=== PATIENT | female | born 1960 ===

== ENCOUNTER 2017-07-19 07:22 | Emergency (ER) | payer BC ==
[2017-07-19 07:44] VITALS: BP 146/57
[2017-07-19] MEDS ORDERED: Albuterol/Ipratropium NEB.SOL* Albuterol 2.5 MG/Ipratropium 0.5 MG 3 ML INH ONE (08:07)
--- NOTE | 2017-07-19 08:08 | UC ---
General HPI - HPI Summary HPI Summary: Sore throat x 2 and 1/2 days, "really bad,". Also cough. Sx started , today is . Improved but last night + bad cough, wheeze. Feels sick. - History of Current Complaint Chief Complaint: UCRespiratory Stated Complaint: CONGESTION Time Seen by Provider: 07/19/17 08:00 Hx Obtained From: Patient Hx Last Menstrual Period: 2yrs Pain Intensity: 0 - Allergy/Home Medications Allergies/Adverse Reactions: Allergies Allergy/AdvReac Type Severity Reaction Status Date / Time azithromycin [From Zithromax] Allergy Intermediate Rash Verified 07/19/17 07:45 erythromycin base AdvReac Intermediate GI Upset Verified 07/19/17 07:45 Home Medications: Home Medications Insulin Glargine/Lixisenatide [Soliqua 100 Unit-33 Mcg/ml Pen] 07/19/17 [ History] metFORMIN* [Glucophage 1000 MG TAB *] 1,000 mg PO BID 07/19/17 [History Confirmed 07/19/17] PMH/Surg Hx/FS Hx/Imm Hx Previously Healthy: Yes - has dm - Surgical History Surgical History: Yes Surgery Procedure, Year, and Place: 03/21/12: fibroid tumor from uterus, polyps , d and c - Family History Known Family History: Positive: Diabetes - Social History Alcohol Use: Rare Substance Use Type: None Smoking Status (MU): Never Smoked Tobacco Review of Systems Constitutional: Fever Skin: Negative Eyes: Negative ENT: Sore Throat, Nasal Discharge Respiratory: Cough Cardiovascular: Negative Gastrointestinal: Negative Genitourinary: Negative Motor: Negative Neurovascular: Negative Musculoskeletal: Negative Neurological: Negative Psychological: Negative Is Patient Immunocompromised?: No All Other Systems Reviewed And Are Negative: Yes Physical Exam Triage Information Reviewed: Yes Appearance: Well-Nourished - sitting up. Conversing in full sentances. Looks tired, nontoxic. NAD. Vital Signs: Initial Vital Signs Temp 99.3 F 07/19/17 07:40 Pulse 80 07/19/17 07:40 Resp 18 07/19/17 07:40 BP 146/57 07/19/17 07:40 Pulse Ox 100 07/19/17 07:40 Vital Signs Reviewed: Yes Eye Exam: Normal - grossly normal ENT: Positive: Pharyngeal erythema - mild post pharynx redness, no sores / exudates. Uvula midline, no sores., Nasal drainage, TM dull Neck exam: Normal Neck: Positive: Supple, Nontender Respiratory Exam: Other - BS equal. scattered wheeze / rhonchi. No rtx. No distress. Cardiovascular Exam: Normal - + syst murmur (pt reports has a hx) Cardiovascular: Positive: RRR, Pulses Normal, Brisk Capillary Refill Abdominal Exam: Normal Musculoskeletal Exam: Normal - moves x 4 ext's. Gait steady. Neurological Exam: Normal - grossly nonfocal Psychological Exam: Normal - conversing easily and appropriately Skin Exam: Normal - no visible or reported rash. Course/Dx - Course Course Of Treatment: Duoneb x 1. CXR - reviewed with pt. Influenza a/b neg. Bld glucose 211mg / dl. Reviewed coa / tx plan with Ms. Escalona. Questions as posed answered to the best of my ability. - Differential Dx - Multi-Symptom Provider Diagnoses: Acute bronchitis. Wheezing Discharge - Sign-Out/Discharge Documenting (check all that apply): Discharge - Discharge Plan Condition: Stable Disposition: HOME Prescriptions: Albuterol 2.5MG/3ML (0.083%)* [Ventolin 2.5 MG/3 ML NEB.LEONIDES*] 2.5 mg INH Q6H PRN #1 box PRN Reason: Wheezing Albuterol HFA INHALER* [Ventolin HFA Inhaler*] 1 - 2 puff INH Q4H PRN #1 mdi PRN Reason: Wheezing Ciprofloxacin TAB* [Cipro 500 MG TAB*] 500 mg PO BID #20 tab Fluconazole [Diflucan 150 MG (NF)] 150 mg PO DAILY #2 tab Patient Education Materials: Acute Bronchitis (ED) Forms: *Work Release Referrals: Alverto Churchill MD [Primary Care Provider] - Additional Instructions: Follow up with your primary care physician, per routine. Seek medical attention for worse or new problems in the meantime. - Billing Disposition and Condition Condition: STABLE Disposition: HOME
--- NOTE | 2017-07-19 08:30 | RAD ---
INDICATION: Cough. Short of breath COMPARISON: None TECHNIQUE: PA and lateral dual-energy views were obtained. FINDINGS: Bones/Soft Tissues: There are no acute bony findings. Cardiomediastinal: The cardiomediastinal silhouette is normal. Lungs: There are no infiltrates. Pleura: There are no pleural effusions. Other: None IMPRESSION: NORMAL CHEST.
== END 2017-07-19 09:37 | disposition home or self-care (01) ==
LOC: UCCORT 07:22
DX: J20.9 Acute bronchitis, unspecified (principal); R06.2 Wheezing; J02.9 Acute pharyngitis, unspecified; E11.9 Type 2 diabetes mellitus without complications; Z79.4 Long term (current) use of insulin; Z88.1 Allergy status to other antibiotic agents
CPT/HCPCS: 71046; 87502; 99212; A9270-GY; G0463